=== PATIENT | female | born 1960 | race Caucasian/White ===

== ENCOUNTER 2022-01-15 09:12 | Outpatient (CLI) | payer OTHER ==
[2022-01-15 09:33] LABS: #Basophils 0.1 thou/uL (0.0-0.2); #Eosinphils 0.2 thou/uL (0.0-0.7); #Lymphocytes 3.3 thou/uL (1.20-3.40); #Monocytes 0.5 thou/uL (0.11-0.59); %Basophils 1.4 % (0.0-1.0); %Eosinophils 1.9 % (0.0-10.0); %Lymphocytes 36.3 % (21.0-51.0); %Monocytes 5.7 % (0.0-10.0); %Neutrophils 54.8 % (42.0-75.0); Hemoglobin 16.4 g/dL (12.0-16.0); Mean Corpuscular HGB CONC 34.2 g/dL (32.0-36.0); Mean Corpuscular Hemoglobin 32.3 pg (27.0-31.0); Mean Corpuscular Volume 94.5 fl (78.0-98.0); Mean Platelet Volume 10.3 fL (7.4-10.4); Platelet Count 279 thou/uL (130-400); RBC Distribution Width 11.3 % (11.5-14.5); Red Blood Cell (RBC) Count 5.07 mill/uL (4.20-5.40); White Blood Cell (WBC) Count 9.1 thou/uL (4.8-10.8)
[2022-01-15 09:54] LABS: ALT (SGPT) 20 U/L (8-55); AST (SGOT) 17 U/L (5-34); Albumin 4.3 g/dL (3.4-4.8); Alkaline Phosphatase 123 U/L (40-110); Anion Gap 13 mmol/L (10-20); BUN (Urea Nitrogen) 10 mg/dL (9.8-20.1); Bilirubin, Total 0.8 mg/dL (0.2-1.2); Calc. Creatinine Clearance 0 mL/min (70-130); Calcium 9.4 mg/dL (7.8-10.44); Carbon Dioxide 25 mmol/L (23-31); Cardiac Risk 4.5 (Less than 4.5); Chloride 105 mmol/L (98-107); Cholesterol 126 mg/dl (< 200 Desired); Estimated GFR 99; Globulin 2.3 g/dL (2.4-3.5); Glucose 105 mg/dL (80-115); HDL Cholesterol 28 mg/dL (>60 Neg Risk); LDL Cholesterol, Calculated 66 mg/dL; Potassium 3.9 mmol/L (3.5-5.1); Protein, Total 6.6 g/dL (5.8-8.1); Sodium 139 mmol/L (136-145); Triglycerides 162 mg/dL (Less than 150)
[2022-01-15 10:15] LABS: Thyroid Stimulating Hormone 3.1305 uIU/mL (0.35-4.94)
[2022-01-15 12:18] LABS: Vitamin D, 25 Hydroxy 27.3 ng/ml (> 30.0)
[2022-01-15 18:17] LABS: Hemoglobin A1c 5.4 % (4.0-6.0)
== END 2022-01-15 09:13 | disposition home or self-care (01) ==
LOC: BURLAB 09:12
PROVIDERS: ATTEND Family Medicine
DX: E78.00 Pure hypercholesterolemia, unspecified (principal); E55.9 Vitamin D deficiency, unspecified; R73.01 Impaired fasting glucose; I10 Essential (primary) hypertension
CPT/HCPCS: 36415; 80053; 80061; 82306; 83036; 84443; 85025